=== PATIENT | male | born 2000 | race Caucasian/White ===

== ENCOUNTER 2021-09-25 12:49 | Inpatient (IN) | payer MEDICAID ==
[~2021-09-25] VITALS: Ht 165.1 cm; Wt 66.8 kg
[2021-09-25] MEDS ORDERED: DEXAMETHASONE 4MG/ML 1ML VIAL IV ONE (13:45)
[2021-09-25 14:20] LABS: MEAN CORPUSCULAR HEMOGLOBIN 31.9 pg (28.0-32.0); MEAN CORPUSCULAR VOLUME 94.8 fL (80.0-94.0); MEAN PLATELET VOLUME 8.1 fl (7.4-10.4); PLATELET 329 x1000/uL (130-400); RED BLOOD CELL COUNT 1.71 mill/uL (4.7-6.1); RED CELL DISTRIBUTION WIDTH 13.3 % (11.6-14.6)
[2021-09-25 14:24] LABS: HEMATOCRIT. 16.2 % (42.0-52.0); HEMOGLOBIN. 5.4 g/dL (14.0-18.0)
[2021-09-25 14:25] LABS: CHLORIDE 89 mEq/L (98-107)
[2021-09-25] MEDS ORDERED: PIPERACILLIN/TAZ 3.375G PREMIX 50 ML IV ONE (14:30)
[2021-09-25 15:20] LABS: PLATELET ESTIMATE NORMAL
[2021-09-25] MEDS ORDERED: SODIUM POLYSTYRENE SULFONATE 15 G/60 ML BOT PO ONE (15:30)
[2021-09-25] MEDS ORDERED: DEXTROSE 50% WATER 50ML SYRINGE IV ONE (15:30)
[2021-09-25] MEDS ORDERED: ALBUTEROL (0.083%) 2.5MG/3ML NEB HHN ONE (15:30)
[2021-09-25] MEDS ORDERED: INSULIN REGULAR (HUMULIN R) 300UNITS/3ML VIAL IV ONE (15:30)
[2021-09-25] MEDS ORDERED: CALCIUM CHLORIDE 1GM/10ML SYR IV ONE (15:30)
[2021-09-25] MEDS ORDERED: SODIUM BICARBONATE 8.4% 1 MEQ/ML 50ML SYR IV ONE (15:30)
[2021-09-25] MEDS ORDERED: NALOXONE HCL 0.4MG/ML VIAL IV PRN (16:00)
[2021-09-25] MEDS ORDERED: DOCUSATE SODIUM 100MG CAPSULE PO PRN (16:00)
[2021-09-25] MEDS ORDERED: HYDROCODONE/ACETAMINOPHEN 5/325MG TABLET PO PRN (16:00)
[2021-09-25] MEDS ORDERED: MAGNESIUM/ALUMINUM HYDROXIDE/SIMETHICONE 30ML UDC PO PRN (16:00)
[2021-09-25] MEDS ORDERED: IPRATROPIUM/ALBUTEROL 0.5-3(2.5)MG/3ML NEB HHN PRN (16:00)
[2021-09-25] MEDS ORDERED: ENOXAPARIN 40MG/0.4ML SYR SUBCUT SCH (16:00)
[2021-09-25 18:26] LABS: INR 1.3; PROTHROMBIN TIME 13.9 sec (9.6-11.0)
[2021-09-25 19:01] LABS: CLARITY URINE CLEAR (CLEAR); COLOR URINE YELLOW (YELLOW); KETONES URINE NEGATIVE (NEGATIVE); LEUKOCYTE ESTERASE URINE 1+ (NEGATIVE); NITRITE URINE NEGATIVE (NEGATIVE); OCCULT BLOOD URINE 1+ (NEGATIVE); PROTEIN URINE 3+ (NEGATIVE); SPECIFIC GRAVITY URINE 1.015 (1.005-1.030); UROBILINOGEN URINE 0.2 E.U./dL (0.2-1.0)
[2021-09-25] MEDS: SODIUM CHLORIDE 0.9% INJ 3ML FLUSH IVF SCH (22:17)
[2021-09-25] MEDS: DEXT 5%/0.9% NACL 1,000 ML IV SCH (22:23)
[2021-09-25 22:46] LABS: BASOPHILS % 0.4 % (0.0-2.0); EOSINOPHILS % 0.1 % (0.0-5.0); HEMATOCRIT. 23.4 % (42.0-52.0); HEMOGLOBIN. 7.8 g/dL (14.0-18.0); LYMPHOCYTES % 10.5 % (20.0-50.0); MEAN CORPUSCULAR HEMOGLOBIN 31.1 pg (28.0-32.0); MEAN CORPUSCULAR VOLUME 93.9 fL (80.0-94.0); MEAN PLATELET VOLUME 8.1 fl (7.4-10.4); PLATELET 251 x1000/uL (130-400); RED CELL DISTRIBUTION WIDTH 14.3 % (11.6-14.6)
[2021-09-25] MEDS ORDERED: PIPERACILLIN/TAZ 3.375G PREMIX 50 ML IV SCH (23:00)
[2021-09-26] VITALS (21 sets, daily range): BP systolic 124–186; BP diastolic 35–102
[2021-09-26] MEDS: MORPHINE SULFATE 2 MG/ML CPJ (NOT FOR IM USE) IV PRN ×2 (01:28→17:54)
[2021-09-26] MEDS: SODIUM CHLORIDE 0.9% INJ 3ML FLUSH IVF SCH ×3 (05:05→22:19)
[2021-09-26 05:47] LABS: CHLORIDE 92 mEq/L (98-107)
[2021-09-26 05:53] LABS: BASOPHILS % 0.2 % (0.0-2.0); HEMATOCRIT. 22.8 % (42.0-52.0); HEMOGLOBIN. 7.7 g/dL (14.0-18.0); LYMPHOCYTES % 8.8 % (20.0-50.0); MEAN CORPUSCULAR HEMOGLOBIN 30.8 pg (28.0-32.0); MEAN CORPUSCULAR VOLUME 91.9 fL (80.0-94.0); MEAN PLATELET VOLUME 8.4 fl (7.4-10.4); MONOCYTES % 2.7 % (2.0-8.0); NEUTROPHILS % 88.3 % (40.0-76.0); PLATELET 245 x1000/uL (130-400); RED BLOOD CELL COUNT 2.48 mill/uL (4.7-6.1); RED CELL DISTRIBUTION WIDTH 14.4 % (11.6-14.6)
[2021-09-26] MEDS: GUAIFENESIN 200MG/10ML SUGAR FREE UDC PO PRN (10:57)
[2021-09-26 13:18] LABS: HEPATITIS B SURFACE ANTIGEN NEGATIVE
[2021-09-26 16:12] LABS: BG BASE EXCESS -3.1 mmol/L (-2.0-2.0); BG CARBOXYHEMOGLOBIN 0.3 % (0.5-1.5); BG DEOXYHEMOGLOBIN 17.3 % (0.0-5.0); BG FRACTION INSPIRED OXYGEN 99.8; BG HCO3 ACT 22.7 mmol/L (22.0-26.0); BG METHEMOGLOBIN 0.6 % (0.0-1.5); BG OXYGEN SATURATION 82.5 % (92.0-98.5); BG OXYHEMOGLOBIN 81.8 % (94.0-97.0); BG PCO2 43.9 mmHg (35.0-45.0); BG PH 7.331 (7.350-7.450); BG PO2 56.5 mmHg (75.0-100.0); BG SAMPLE SITE RIGHT RADIAL; BG TOTAL HEMOGLOBIN 8.1 g/dL (12.0-18.0); BG VENT MODE MASK - NRB
[2021-09-26] MEDS: PANTOPRAZOLE SODIUM 40 MG/VIAL IV SCH (17:52)
[2021-09-26] MEDS: SUCRALFATE 1 G/10 ML UDC PO SCH ×2 (17:52→22:29)
[2021-09-26] MEDS: PIPERACILLIN/TAZOBACTAM 3.375 G in DEXTROSE 5% WATER 50 ML IV SCH ×2 (17:53→22:20)
[2021-09-26] MEDS: DEXT 5%/0.9% NACL 1,000 ML IV SCH (18:06)
[2021-09-26] MEDS: DIPHENHYDRAMINE 50MG/ML VIAL IV PRN (22:20)
[2021-09-26] MEDS: CLONIDINE 0.1MG TABLET PO PRN (22:21)
[2021-09-26] MEDS: LORAZEPAM 2MG/ML CPJ IV PRN (22:28)
[2021-09-27] VITALS (61 sets, daily range): BP systolic 95–151; BP diastolic 31–108
[2021-09-27] MEDS: CLONIDINE 0.1MG TABLET PO PRN ×2 (02:25→08:34)
[2021-09-27] MEDS: DIPHENHYDRAMINE 50MG/ML VIAL IV PRN ×4 (02:25→21:46)
[2021-09-27 05:52] LABS: HEMATOCRIT. 21.5 % (42.0-52.0); HEMOGLOBIN. 7.5 g/dL (14.0-18.0); MEAN CORPUSCULAR VOLUME 92.2 fL (80.0-94.0); MEAN PLATELET VOLUME 8.7 fl (7.4-10.4); PLATELET 226 x1000/uL (130-400); RED BLOOD CELL COUNT 2.33 mill/uL (4.7-6.1); RED CELL DISTRIBUTION WIDTH 14.4 % (11.6-14.6)
[2021-09-27 05:56] LABS: CHLORIDE 99 mEq/L (98-107)
[2021-09-27 06:08] LABS: TOTAL IRON BINDING CAPACITY 294 ug/dL (250-450)
[2021-09-27] MEDS: PIPERACILLIN/TAZOBACTAM 3.375 G in DEXTROSE 5% WATER 50 ML IV SCH ×2 (06:19→21:47)
[2021-09-27 06:30] LABS: FOLIC ACID (FOLATE) SERUM 5.8 ng/mL (>5.38)
[2021-09-27] MEDS: SUCRALFATE 1 G/10 ML UDC PO SCH ×4 (06:42→21:46)
[2021-09-27] MEDS: SODIUM CHLORIDE 0.9% INJ 3ML FLUSH IVF SCH ×3 (06:42→21:49)
[2021-09-27] MEDS: DEXT 5%/0.9% NACL 1,000 ML IV SCH ×2 (07:30→17:36)
[2021-09-27 08:19] LABS: BG BASE EXCESS 5.2 mmol/L (-2.0-2.0); BG CARBOXYHEMOGLOBIN 0.3 % (0.5-1.5); BG DEOXYHEMOGLOBIN 2.4 % (0.0-5.0); BG HCO3 ACT 29.8 mmol/L (22.0-26.0); BG METHEMOGLOBIN 0.3 % (0.0-1.5); BG OXYGEN SATURATION 97.6 % (92.0-98.5); BG PCO2 44.4 mmHg (35.0-45.0); BG PH 7.445 (7.350-7.450); BG PO2 108.3 mmHg (75.0-100.0); BG SAMPLE SITE RIGHT RADIAL; BG TOTAL HEMOGLOBIN 8.1 g/dL (12.0-18.0); BG VENT MODE MASK - NRB
[2021-09-27] MEDS: PANTOPRAZOLE SODIUM 40 MG/VIAL IV SCH ×2 (08:33→17:36)
[2021-09-27 10:18] LABS: CREATINE KINASE 1443 IU/L (39-308)
[2021-09-27 12:21] LABS: PLATELET ESTIMATE NORMAL
[2021-09-28] VITALS (71 sets, daily range): BP systolic 65–179; BP diastolic 21–103
[2021-09-28 06:24] LABS: BASOPHILS % 0.2 % (0.0-2.0); EOSINOPHILS % 0.5 % (0.0-5.0); LYMPHOCYTES % 7.9 % (20.0-50.0); MEAN CORPUSCULAR HEMOGLOBIN 33.3 pg (28.0-32.0); MEAN CORPUSCULAR VOLUME 94.1 fL (80.0-94.0); MEAN PLATELET VOLUME 8.5 fl (7.4-10.4); MONOCYTES % 4.8 % (2.0-8.0); NEUTROPHILS % 86.6 % (40.0-76.0); PLATELET 187 x1000/uL (130-400); RED CELL DISTRIBUTION WIDTH 14.4 % (11.6-14.6)
[2021-09-28] MEDS: SUCRALFATE 1 G/10 ML UDC PO SCH ×4 (06:30→21:05)
[2021-09-28] MEDS: PIPERACILLIN/TAZOBACTAM 3.375 G in DEXTROSE 5% WATER 50 ML IV SCH ×2 (06:38→21:01)
[2021-09-28] MEDS: SODIUM CHLORIDE 0.9% INJ 3ML FLUSH IVF SCH ×3 (06:40→22:20)
[2021-09-28 06:59] LABS: HEMATOCRIT. 17.9 % (42.0-52.0); HEMOGLOBIN. 6.3 g/dL (14.0-18.0)
[2021-09-28 07:49] LABS: CHLORIDE 100 mEq/L (98-107)
[2021-09-28] MEDS: PANTOPRAZOLE SODIUM 40 MG/VIAL IV SCH ×2 (08:09→16:56)
[2021-09-28] MEDS ORDERED: ALBUTEROL 6.7GM HFA INHALER ORI PRN (11:45)
[2021-09-28] MEDS: DEXT 5%/0.9% NACL 1,000 ML IV SCH (14:55)
[2021-09-28 15:06] LABS: ANTI-NUCLEAR ANTIBODIES DIRECT Negative (Negative)
[2021-09-28] MEDS: IRON SUCROSE COMPLEX 100 MG/5 ML ML IV SCH (16:56)
[2021-09-28 20:02] LABS: HEMATOCRIT 25.8 % (42.0-52.0)
[2021-09-28] MEDS: DIPHENHYDRAMINE 50MG/ML VIAL IV PRN (21:05)
[2021-09-28] MEDS: GUAIFENESIN 200MG/10ML SUGAR FREE UDC PO PRN (22:19)
[2021-09-29] VITALS (41 sets, daily range): BP systolic 91–184; BP diastolic 40–141
[2021-09-29] MEDS: LORAZEPAM 2MG/ML CPJ IV PRN (00:46)
[2021-09-29 00:50] LABS: HEMATOCRIT 25.7 % (42.0-52.0); HEMOGLOBIN 8.9 g/dL (14.0-18.0)
[2021-09-29] MEDS: CLONIDINE 0.1MG TABLET PO PRN (01:51)
[2021-09-29] MEDS: DEXT 5%/0.9% NACL 1,000 ML IV SCH (06:00)
[2021-09-29] MEDS: SODIUM CHLORIDE 0.9% INJ 3ML FLUSH IVF SCH ×2 (06:00→14:53)
[2021-09-29 06:08] LABS: CHLORIDE 100 mEq/L (98-107)
[2021-09-29 06:20] LABS: HEMATOCRIT. 25.3 % (42.0-52.0); HEMOGLOBIN. 8.8 g/dL (14.0-18.0); MEAN CORPUSCULAR HEMOGLOBIN 31.8 pg (28.0-32.0); MEAN CORPUSCULAR VOLUME 91.9 fL (80.0-94.0); MEAN PLATELET VOLUME 8.2 fl (7.4-10.4); PLATELET 188 x1000/uL (130-400); RED BLOOD CELL COUNT 2.75 mill/uL (4.7-6.1); RED CELL DISTRIBUTION WIDTH 14.8 % (11.6-14.6)
[2021-09-29] MEDS: SUCRALFATE 1 G/10 ML UDC PO SCH ×4 (07:09→21:51)
[2021-09-29] MEDS: PIPERACILLIN/TAZOBACTAM 3.375 G in DEXTROSE 5% WATER 50 ML IV SCH ×2 (08:33→21:52)
[2021-09-29] MEDS: PANTOPRAZOLE SODIUM 40 MG/VIAL IV SCH ×2 (08:33→16:11)
[2021-09-29] MEDS: GUAIFENESIN 200MG/10ML SUGAR FREE UDC PO PRN ×2 (10:44→16:12)
[2021-09-29 13:49] LABS: PLATELET ESTIMATE NORMAL
[2021-09-29 14:27] LABS: HEMATOCRIT 29.9 % (42.0-52.0)
[2021-09-29] MEDS: IRON SUCROSE COMPLEX 100 MG/5 ML ML IV SCH (14:54)
[2021-09-29] MEDS: HYDRALAZINE HCL 50MG TABLET PO SCH ×2 (14:56→22:57)
[2021-09-29 21:25] LABS: HEMATOCRIT 29.8 % (42.0-52.0); HEMOGLOBIN 10.3 g/dL (14.0-18.0)
[2021-09-30] VITALS (29 sets, daily range): BP systolic 115–139; BP diastolic 58–89
[2021-09-30] MEDS: SUCRALFATE 1 G/10 ML UDC PO SCH ×4 (06:18→23:52)
[2021-09-30] MEDS: HYDRALAZINE HCL 50MG TABLET PO SCH ×3 (06:19→23:53)
[2021-09-30] MEDS: DEXT 5%/0.9% NACL 1,000 ML IV SCH ×2 (06:20→23:52)
[2021-09-30 07:29] LABS: HEMATOCRIT. 26.6 % (42.0-52.0); HEMOGLOBIN. 9.3 g/dL (14.0-18.0); MEAN CORPUSCULAR HEMOGLOBIN 32.1 pg (28.0-32.0); MEAN CORPUSCULAR VOLUME 91.9 fL (80.0-94.0); MEAN PLATELET VOLUME 8.2 fl (7.4-10.4); PLATELET 214 x1000/uL (130-400); RED BLOOD CELL COUNT 2.89 mill/uL (4.7-6.1); RED CELL DISTRIBUTION WIDTH 14.6 % (11.6-14.6)
[2021-09-30] MEDS: PANTOPRAZOLE SODIUM 40 MG/VIAL IV SCH ×2 (09:01→16:57)
[2021-09-30] MEDS: PIPERACILLIN/TAZOBACTAM 3.375 G in DEXTROSE 5% WATER 50 ML IV SCH ×2 (09:01→21:00)
[2021-09-30] MEDS ORDERED: PHENYLEPHRINE HCL 1% 15 ML NASAL SPRAY BOTHNSTRLS PRN (11:00)
[2021-09-30] MEDS: SODIUM CHLORIDE 0.9% INJ 3ML FLUSH IVF SCH ×2 (14:36→23:52)
[2021-09-30] MEDS: IRON SUCROSE COMPLEX 100 MG/5 ML ML IV SCH (14:36)
[2021-09-30 15:50] LABS: PLATELET ESTIMATE NORMAL
[2021-09-30] MEDS: OXYMETAZOLINE HCL NASAL SPRAY 15ML BOTHNSTRLS SCH ×2 (16:57→23:52)
[2021-10-01 04:00] VITALS: BP 113/66
[2021-10-01] MEDS: HYDRALAZINE HCL 50MG TABLET PO SCH ×3 (05:59→22:54)
[2021-10-01] MEDS: SODIUM CHLORIDE 0.9% INJ 3ML FLUSH IVF SCH ×3 (05:59→22:54)
[2021-10-01] MEDS: SUCRALFATE 1 G/10 ML UDC PO SCH ×4 (06:00→22:53)
[2021-10-01 08:00] VITALS: BP 116/82
[2021-10-01 09:10] LABS: BASOPHILS % 0.8 % (0.0-2.0); EOSINOPHILS % 4.1 % (0.0-5.0); HEMATOCRIT. 26.4 % (42.0-52.0); HEMOGLOBIN. 9.1 g/dL (14.0-18.0); LYMPHOCYTES % 7.6 % (20.0-50.0); MEAN CORPUSCULAR HEMOGLOBIN 31.9 pg (28.0-32.0); MEAN CORPUSCULAR VOLUME 92.2 fL (80.0-94.0); MEAN PLATELET VOLUME 7.8 fl (7.4-10.4); MONOCYTES % 4.9 % (2.0-8.0); NEUTROPHILS % 82.6 % (40.0-76.0); PLATELET 218 x1000/uL (130-400); RED BLOOD CELL COUNT 2.87 mill/uL (4.7-6.1); RED CELL DISTRIBUTION WIDTH 14.6 % (11.6-14.6)
[2021-10-01] MEDS: PANTOPRAZOLE SODIUM 40 MG/VIAL IV SCH ×2 (09:11→17:02)
[2021-10-01] MEDS: OXYMETAZOLINE HCL NASAL SPRAY 15ML BOTHNSTRLS SCH ×2 (09:12→22:55)
[2021-10-01 12:00] VITALS: BP 129/90
[2021-10-01 16:00] VITALS: BP 114/81
[2021-10-01] MEDS: DEXT 5%/0.9% NACL 1,000 ML IV SCH (17:04)
[2021-10-01 19:11] LABS: HEMATOCRIT 24.8 % (42.0-52.0); HEMOGLOBIN 8.3 g/dL (14.0-18.0)
[2021-10-01 20:00] VITALS: BP 125/87
[2021-10-02 04:00] VITALS: BP 121/74
[2021-10-02] MEDS: SODIUM CHLORIDE 0.9% INJ 3ML FLUSH IVF SCH ×3 (06:18→22:15)
[2021-10-02] MEDS: HYDRALAZINE HCL 50MG TABLET PO SCH ×3 (06:19→22:14)
[2021-10-02] MEDS: SUCRALFATE 1 G/10 ML UDC PO SCH ×4 (06:19→22:14)
[2021-10-02 08:00] VITALS: BP 122/78
[2021-10-02] MEDS: PANTOPRAZOLE SODIUM 40 MG/VIAL IV SCH ×2 (09:03→17:01)
[2021-10-02] MEDS: OXYMETAZOLINE HCL NASAL SPRAY 15ML BOTHNSTRLS SCH ×2 (09:10→22:15)
[2021-10-02 11:08] LABS: HEMATOCRIT. 24.7 % (42.0-52.0); HEMOGLOBIN. 8.3 g/dL (14.0-18.0); MEAN CORPUSCULAR HEMOGLOBIN 31.3 pg (28.0-32.0); MEAN CORPUSCULAR VOLUME 93.1 fL (80.0-94.0); MEAN PLATELET VOLUME 7.5 fl (7.4-10.4); PLATELET 211 x1000/uL (130-400); RED BLOOD CELL COUNT 2.65 mill/uL (4.7-6.1); RED CELL DISTRIBUTION WIDTH 14.7 % (11.6-14.6)
[2021-10-02 12:00] VITALS: BP 139/79
[2021-10-02] MEDS: ONDANSETRON HCL 4MG/2ML INJ IV PRN (12:29)
[2021-10-02 12:46] LABS: PLATELET ESTIMATE NORMAL
[2021-10-02] MEDS: DEXT 5%/0.9% NACL 1,000 ML IV SCH (13:50)
[2021-10-02 16:00] VITALS: BP 127/70
[2021-10-02 20:00] VITALS: BP 126/87
[2021-10-03 04:00] VITALS: BP 120/74
[2021-10-03] MEDS: SUCRALFATE 1 G/10 ML UDC PO SCH ×4 (06:01→20:54)
[2021-10-03] MEDS: HYDRALAZINE HCL 50MG TABLET PO SCH ×3 (06:01→20:54)
[2021-10-03] MEDS: SODIUM CHLORIDE 0.9% INJ 3ML FLUSH IVF SCH ×3 (06:02→20:54)
[2021-10-03 08:00] VITALS: BP 130/73
[2021-10-03] MEDS: PANTOPRAZOLE SODIUM 40 MG/VIAL IV SCH ×2 (09:15→16:38)
[2021-10-03] MEDS: ONDANSETRON HCL 4MG/2ML INJ IV PRN (09:15)
[2021-10-03] MEDS: OXYMETAZOLINE HCL NASAL SPRAY 15ML BOTHNSTRLS SCH ×2 (09:16→20:58)
[2021-10-03 12:00] VITALS: BP 124/79
[2021-10-03] MEDS: DEXT 5%/0.9% NACL 1,000 ML IV SCH (13:35)
[2021-10-03 16:00] VITALS: BP 112/68
[2021-10-03 20:00] VITALS: BP 112/71
[2021-10-03 22:03] LABS: HEMATOCRIT 20.2 % (42.0-52.0); HEMOGLOBIN 6.8 g/dL (14.0-18.0)
[2021-10-04] VITALS (9 sets, daily range): BP systolic 117–128; BP diastolic 66–79
[2021-10-04] MEDS: HYDRALAZINE HCL 50MG TABLET PO SCH ×3 (05:30→22:25)
[2021-10-04] MEDS: SODIUM CHLORIDE 0.9% INJ 3ML FLUSH IVF SCH ×3 (05:30→22:25)
[2021-10-04] MEDS: SUCRALFATE 1 G/10 ML UDC PO SCH ×4 (05:30→22:25)
[2021-10-04 06:50] LABS: BASOPHILS % 1.2 % (0.0-2.0); EOSINOPHILS % 2.3 % (0.0-5.0); HEMATOCRIT. 23.4 % (42.0-52.0); HEMOGLOBIN. 8.1 g/dL (14.0-18.0); LYMPHOCYTES % 10.2 % (20.0-50.0); MEAN CORPUSCULAR HEMOGLOBIN 32.5 pg (28.0-32.0); MEAN CORPUSCULAR VOLUME 93.4 fL (80.0-94.0); MEAN PLATELET VOLUME 7.6 fl (7.4-10.4); MONOCYTES % 6.8 % (2.0-8.0); NEUTROPHILS % 79.5 % (40.0-76.0); PLATELET 206 x1000/uL (130-400); RED BLOOD CELL COUNT 2.51 mill/uL (4.7-6.1); RED CELL DISTRIBUTION WIDTH 14.4 % (11.6-14.6)
[2021-10-04] MEDS: PANTOPRAZOLE SODIUM 40 MG/VIAL IV SCH ×2 (08:47→16:54)
[2021-10-04] MEDS: OXYMETAZOLINE HCL NASAL SPRAY 15ML BOTHNSTRLS SCH ×2 (08:47→22:26)
[2021-10-04] MEDS: ONDANSETRON HCL 4MG/2ML INJ IV PRN (08:52)
[2021-10-04] MEDS: ACETAMINOPHEN 325MG TABLET PO PRN (09:19)
[2021-10-04 20:06] LABS: HEMATOCRIT 23.9 % (42.0-52.0); HEMOGLOBIN 8.1 g/dL (14.0-18.0)
[2021-10-04 20:22] LABS: INR 1.2; PROTHROMBIN TIME 12.4 sec (9.6-11.0)
[2021-10-05 04:00] VITALS: BP 122/73
[2021-10-05] MEDS: SUCRALFATE 1 G/10 ML UDC PO SCH ×4 (06:04→22:10)
[2021-10-05] MEDS: SODIUM CHLORIDE 0.9% INJ 3ML FLUSH IVF SCH ×3 (06:05→22:11)
[2021-10-05] MEDS: HYDRALAZINE HCL 50MG TABLET PO SCH ×3 (06:05→22:10)
[2021-10-05 08:00] VITALS: BP 135/72
[2021-10-05] MEDS: PANTOPRAZOLE SODIUM 40 MG/VIAL IV SCH ×2 (09:00→17:14)
[2021-10-05] MEDS: OXYMETAZOLINE HCL NASAL SPRAY 15ML BOTHNSTRLS SCH ×2 (09:00→22:11)
[2021-10-05 12:00] VITALS: BP 110/81
[2021-10-05 16:00] VITALS: BP 126/81
[2021-10-05 18:39] LABS: BASOPHILS % 1.5 % (0.0-2.0); EOSINOPHILS % 2.3 % (0.0-5.0); HEMATOCRIT. 24.3 % (42.0-52.0); HEMOGLOBIN. 8.2 g/dL (14.0-18.0); LYMPHOCYTES % 10.4 % (20.0-50.0); MEAN CORPUSCULAR HEMOGLOBIN 31.4 pg (28.0-32.0); MEAN CORPUSCULAR VOLUME 92.7 fL (80.0-94.0); MEAN PLATELET VOLUME 7.9 fl (7.4-10.4); NEUTROPHILS % 76.8 % (40.0-76.0); PLATELET 242 x1000/uL (130-400); RED BLOOD CELL COUNT 2.62 mill/uL (4.7-6.1); RED CELL DISTRIBUTION WIDTH 14.5 % (11.6-14.6)
[2021-10-05 20:00] VITALS: BP 126/81
[2021-10-05] MEDS: ONDANSETRON HCL 4MG/2ML INJ IV PRN (22:10)
[2021-10-06] VITALS: BP 115/68
[2021-10-06 04:00] VITALS: BP 123/71
[2021-10-06 07:08] LABS: BASOPHILS % 1.9 % (0.0-2.0); EOSINOPHILS % 3.1 % (0.0-5.0); HEMATOCRIT. 21.6 % (42.0-52.0); HEMOGLOBIN. 7.6 g/dL (14.0-18.0); LYMPHOCYTES % 15.1 % (20.0-50.0); MEAN CORPUSCULAR HEMOGLOBIN 32.4 pg (28.0-32.0); MEAN CORPUSCULAR VOLUME 91.8 fL (80.0-94.0); MEAN PLATELET VOLUME 7.4 fl (7.4-10.4); MONOCYTES % 9.3 % (2.0-8.0); NEUTROPHILS % 70.6 % (40.0-76.0); PLATELET 214 x1000/uL (130-400); RED BLOOD CELL COUNT 2.35 mill/uL (4.7-6.1); RED CELL DISTRIBUTION WIDTH 14.7 % (11.6-14.6)
[2021-10-06] MEDS: SODIUM CHLORIDE 0.9% INJ 3ML FLUSH IVF SCH ×3 (07:10→22:11)
[2021-10-06] MEDS: SUCRALFATE 1 G/10 ML UDC PO SCH ×4 (07:10→20:27)
[2021-10-06] MEDS: HYDRALAZINE HCL 50MG TABLET PO SCH ×3 (07:10→22:09)
[2021-10-06 08:05] VITALS: BP 112/67
[2021-10-06] MEDS: OXYMETAZOLINE HCL NASAL SPRAY 15ML BOTHNSTRLS SCH (09:00)
[2021-10-06] MEDS: PANTOPRAZOLE SODIUM 40 MG/VIAL IV SCH ×2 (09:31→18:00)
[2021-10-06 12:00] VITALS: BP 116/80
[2021-10-06 13:39] LABS: INR 1.2; PROTHROMBIN TIME 12.4 sec (9.6-11.0)
[2021-10-06] MEDS: ONDANSETRON HCL 4MG/2ML INJ IV SCH ×2 (15:20→20:27)
[2021-10-06 16:00] VITALS: BP 124/80
[2021-10-06 17:08] LABS: BG BASE EXCESS -1.3 mmol/L (-2.0-2.0); BG CARBOXYHEMOGLOBIN 0.3 % (0.5-1.5); BG DEOXYHEMOGLOBIN 11.5 % (0.0-5.0); BG FRACTION INSPIRED OXYGEN 21; BG METHEMOGLOBIN 0.3 % (0.0-1.5); BG OXYGEN SATURATION 88.4 % (92.0-98.5); BG OXYHEMOGLOBIN 87.9 % (94.0-97.0); BG PCO2 37.1 mmHg (35.0-45.0); BG PH 7.411 (7.350-7.450); BG SAMPLE SITE RIGHT RADIAL; BG TOTAL HEMOGLOBIN 8.8 g/dL (12.0-18.0); BG VENT MODE ROOM AIR
[2021-10-07] VITALS: BP 122/76
[2021-10-07] MEDS: ONDANSETRON HCL 4MG/2ML INJ IV SCH ×4 (02:47→22:27)
[2021-10-07 04:00] VITALS: BP 128/84
[2021-10-07] MEDS: SODIUM CHLORIDE 0.9% INJ 3ML FLUSH IVF SCH ×3 (06:12→22:30)
[2021-10-07] MEDS: SUCRALFATE 1 G/10 ML UDC PO SCH ×4 (06:12→22:26)
[2021-10-07] MEDS: HYDRALAZINE HCL 50MG TABLET PO SCH ×3 (06:13→22:27)
[2021-10-07 08:00] VITALS: BP 126/80
[2021-10-07 08:14] LABS: BASOPHILS % 1.2 % (0.0-2.0); EOSINOPHILS % 2.5 % (0.0-5.0); HEMATOCRIT. 22.5 % (42.0-52.0); HEMOGLOBIN. 7.8 g/dL (14.0-18.0); LYMPHOCYTES % 11.7 % (20.0-50.0); MEAN CORPUSCULAR HEMOGLOBIN 32.3 pg (28.0-32.0); MEAN CORPUSCULAR VOLUME 93.3 fL (80.0-94.0); MEAN PLATELET VOLUME 7.9 fl (7.4-10.4); MONOCYTES % 7.9 % (2.0-8.0); NEUTROPHILS % 76.7 % (40.0-76.0); PLATELET 221 x1000/uL (130-400); RED BLOOD CELL COUNT 2.41 mill/uL (4.7-6.1); RED CELL DISTRIBUTION WIDTH 14.5 % (11.6-14.6)
[2021-10-07] MEDS: PANTOPRAZOLE SODIUM 40 MG/VIAL IV SCH ×2 (08:51→16:24)
[2021-10-07 12:00] VITALS: BP 120/79
[2021-10-07 15:43] VITALS: BP 143/97
[2021-10-07 20:45] VITALS: BP 125/87
[2021-10-07] MEDS: ACETAMINOPHEN 325MG TABLET PO PRN (22:27)
[2021-10-08] VITALS (22 sets, daily range): BP systolic 105–134; BP diastolic 59–88
[2021-10-08] MEDS: ONDANSETRON HCL 4MG/2ML INJ IV SCH ×4 (04:33→21:04)
[2021-10-08] MEDS: SODIUM CHLORIDE 0.9% INJ 3ML FLUSH IVF SCH ×3 (04:35→21:10)
[2021-10-08] MEDS ORDERED: CEFAZOLIN 1000MG PREMIX 50 ML IV NR (08:15)
[2021-10-08] MEDS ORDERED: CEFAZOLIN 1000MG PREMIX 50 ML IV ONE (08:30)
[2021-10-08] MEDS ORDERED: FENTANYL CITRATE/PF 50MCG/ML 2ML VIAL ONE (08:31)
[2021-10-08] MEDS ORDERED: LIDOCAINE HCL 1% 20ML VIAL (Pyxis) INJ ONE (08:31)
[2021-10-08] MEDS: PANTOPRAZOLE SODIUM 40 MG/VIAL IV SCH ×2 (09:00→18:02)
[2021-10-08] MEDS ORDERED: FENTANYL CITRATE/PF 50MCG/ML 2ML VIAL IV NR (09:45)
[2021-10-08] MEDS ORDERED: METOCLOPRAMIDE HCL 10MG/2ML VIAL IV PRN (11:30)
[2021-10-08] MEDS: SUCRALFATE 1 G/10 ML UDC PO SCH ×4 (11:45→21:04)
[2021-10-08] MEDS: HYDRALAZINE HCL 50MG TABLET PO SCH (22:00)
[2021-10-09] VITALS: BP 118/73
[2021-10-09] MEDS: ACETAMINOPHEN 325MG TABLET PO PRN (01:33)
[2021-10-09] MEDS: ONDANSETRON HCL 4MG/2ML INJ IV SCH ×4 (03:14→20:15)
[2021-10-09 04:00] VITALS: BP 113/70
[2021-10-09] MEDS: SUCRALFATE 1 G/10 ML UDC PO SCH ×4 (06:11→21:00)
[2021-10-09] MEDS: HYDRALAZINE HCL 50MG TABLET PO SCH ×3 (06:15→22:00)
[2021-10-09] MEDS: SODIUM CHLORIDE 0.9% INJ 3ML FLUSH IVF SCH ×3 (06:38→22:00)
[2021-10-09 07:10] LABS: BASOPHILS % 1.4 % (0.0-2.0); EOSINOPHILS % 2.1 % (0.0-5.0); HEMATOCRIT. 22.9 % (42.0-52.0); HEMOGLOBIN. 8.1 g/dL (14.0-18.0); LYMPHOCYTES % 14.7 % (20.0-50.0); MEAN CORPUSCULAR HEMOGLOBIN 32.7 pg (28.0-32.0); MEAN CORPUSCULAR VOLUME 92.6 fL (80.0-94.0); MONOCYTES % 6.4 % (2.0-8.0); NEUTROPHILS % 75.4 % (40.0-76.0); PLATELET 211 x1000/uL (130-400); RED BLOOD CELL COUNT 2.47 mill/uL (4.7-6.1); RED CELL DISTRIBUTION WIDTH 14.1 % (11.6-14.6)
[2021-10-09 08:00] VITALS: BP 112/71
[2021-10-09] MEDS: PANTOPRAZOLE SODIUM 40 MG/VIAL IV SCH ×2 (08:31→17:06)
[2021-10-09 12:00] VITALS: BP 117/69
[2021-10-09 15:19] LABS: HEPATITIS B SURFACE ANTIGEN NEGATIVE
[2021-10-09 15:46] VITALS: BP 120/82
[2021-10-10] MEDS: ACETAMINOPHEN 325MG TABLET PO PRN (00:43)
[2021-10-10 04:00] VITALS: BP 140/85
[2021-10-10] MEDS: ONDANSETRON HCL 4MG/2ML INJ IV SCH ×4 (05:07→20:33)
[2021-10-10] MEDS: SUCRALFATE 1 G/10 ML UDC PO SCH ×4 (05:08→20:32)
[2021-10-10] MEDS: HYDRALAZINE HCL 50MG TABLET PO SCH ×3 (05:08→21:55)
[2021-10-10] MEDS: SODIUM CHLORIDE 0.9% INJ 3ML FLUSH IVF SCH ×3 (06:03→21:56)
[2021-10-10 08:04] LABS: BASOPHILS % 2.3 % (0.0-2.0); EOSINOPHILS % 1.7 % (0.0-5.0); HEMATOCRIT. 23.7 % (42.0-52.0); HEMOGLOBIN. 7.9 g/dL (14.0-18.0); LYMPHOCYTES % 21.4 % (20.0-50.0); MEAN CORPUSCULAR HEMOGLOBIN 31.1 pg (28.0-32.0); MEAN CORPUSCULAR VOLUME 92.6 fL (80.0-94.0); MEAN PLATELET VOLUME 8.1 fl (7.4-10.4); NEUTROPHILS % 67.6 % (40.0-76.0); PLATELET 240 x1000/uL (130-400); RED BLOOD CELL COUNT 2.55 mill/uL (4.7-6.1); RED CELL DISTRIBUTION WIDTH 14.5 % (11.6-14.6)
[2021-10-10 08:30] VITALS: BP 115/78
[2021-10-10] MEDS: PANTOPRAZOLE SODIUM 40 MG/VIAL IV SCH ×2 (09:28→17:01)
[2021-10-10 12:00] VITALS: BP 120/80
[2021-10-10 16:00] VITALS: BP 119/72
[2021-10-10 20:00] VITALS: BP 116/83
[2021-10-11] VITALS: BP 121/75
[2021-10-11] MEDS: ONDANSETRON HCL 4MG/2ML INJ IV SCH ×4 (03:37→21:54)
[2021-10-11 04:00] VITALS: BP 128/62
[2021-10-11] MEDS: HYDRALAZINE HCL 50MG TABLET PO SCH ×3 (05:34→21:55)
[2021-10-11] MEDS: SODIUM CHLORIDE 0.9% INJ 3ML FLUSH IVF SCH ×3 (05:35→21:55)
[2021-10-11] MEDS: SUCRALFATE 1 G/10 ML UDC PO SCH ×4 (06:28→21:54)
[2021-10-11 07:22] LABS: BASOPHILS % 2.6 % (0.0-2.0); EOSINOPHILS % 1.8 % (0.0-5.0); HEMOGLOBIN. 7.8 g/dL (14.0-18.0); LYMPHOCYTES % 19.8 % (20.0-50.0); MEAN CORPUSCULAR HEMOGLOBIN 31.4 pg (28.0-32.0); MEAN CORPUSCULAR VOLUME 92.6 fL (80.0-94.0); MONOCYTES % 7.6 % (2.0-8.0); NEUTROPHILS % 68.2 % (40.0-76.0); PLATELET 237 x1000/uL (130-400); RED BLOOD CELL COUNT 2.49 mill/uL (4.7-6.1); RED CELL DISTRIBUTION WIDTH 14.4 % (11.6-14.6)
[2021-10-11 08:30] VITALS: BP 96/64
[2021-10-11] MEDS: PANTOPRAZOLE SODIUM 40 MG/VIAL IV SCH ×2 (09:19→16:53)
[2021-10-11 12:17] VITALS: BP 115/62
[2021-10-11 16:22] VITALS: BP 150/93
[2021-10-11 20:00] VITALS: BP 127/86
[2021-10-11] MEDS ORDERED: EPOETIN ALFA-EPBX 4,000 UNIT/ML VIAL SUBCUT NR (21:00)
[2021-10-12] VITALS: BP 96/62
[2021-10-12] MEDS: ONDANSETRON HCL 4MG/2ML INJ IV SCH ×4 (02:15→20:13)
[2021-10-12 04:00] VITALS: BP 104/54
[2021-10-12] MEDS: SUCRALFATE 1 G/10 ML UDC PO SCH ×4 (05:18→20:13)
[2021-10-12] MEDS: HYDRALAZINE HCL 50MG TABLET PO SCH ×3 (05:19→21:04)
[2021-10-12] MEDS: SODIUM CHLORIDE 0.9% INJ 3ML FLUSH IVF SCH ×3 (05:19→21:04)
[2021-10-12 07:39] LABS: EOSINOPHILS % 1.8 % (0.0-5.0); HEMOGLOBIN. 8.2 g/dL (14.0-18.0); LYMPHOCYTES % 22.7 % (20.0-50.0); MEAN CORPUSCULAR HEMOGLOBIN 31.8 pg (28.0-32.0); MEAN CORPUSCULAR VOLUME 93.1 fL (80.0-94.0); MEAN PLATELET VOLUME 8.1 fl (7.4-10.4); MONOCYTES % 7.7 % (2.0-8.0); NEUTROPHILS % 65.8 % (40.0-76.0); PLATELET 236 x1000/uL (130-400); RED BLOOD CELL COUNT 2.57 mill/uL (4.7-6.1); RED CELL DISTRIBUTION WIDTH 14.4 % (11.6-14.6)
[2021-10-12 08:00] VITALS: BP 111/68
[2021-10-12] MEDS: PANTOPRAZOLE SODIUM 40 MG/VIAL IV SCH ×2 (08:53→16:34)
[2021-10-12 12:00] VITALS: BP 123/75
[2021-10-12 16:00] VITALS: BP 115/68
[2021-10-12 20:00] VITALS: BP 110/72
[2021-10-13] VITALS: BP 123/67
[2021-10-13] MEDS: ONDANSETRON HCL 4MG/2ML INJ IV SCH ×4 (02:33→21:09)
[2021-10-13 04:00] VITALS: BP 119/65
[2021-10-13] MEDS: SUCRALFATE 1 G/10 ML UDC PO SCH ×4 (05:59→21:09)
[2021-10-13] MEDS: SODIUM CHLORIDE 0.9% INJ 3ML FLUSH IVF SCH ×3 (05:59→21:40)
[2021-10-13] MEDS: HYDRALAZINE HCL 50MG TABLET PO SCH ×3 (06:00→21:09)
[2021-10-13 07:50] LABS: BASOPHILS % 2.3 % (0.0-2.0); HEMATOCRIT. 22.2 % (42.0-52.0); HEMOGLOBIN. 7.6 g/dL (14.0-18.0); MEAN CORPUSCULAR HEMOGLOBIN 31.9 pg (28.0-32.0); MEAN PLATELET VOLUME 8.4 fl (7.4-10.4); MONOCYTES % 7.4 % (2.0-8.0); NEUTROPHILS % 65.3 % (40.0-76.0); PLATELET 212 x1000/uL (130-400); RED BLOOD CELL COUNT 2.38 mill/uL (4.7-6.1); RED CELL DISTRIBUTION WIDTH 14.3 % (11.6-14.6)
[2021-10-13 08:00] VITALS: BP 120/83
[2021-10-13] MEDS: PANTOPRAZOLE SODIUM 40 MG/VIAL IV SCH ×2 (09:13→17:00)
[2021-10-13] MEDS: ACETAMINOPHEN 325MG TABLET PO PRN (09:27)
[2021-10-13 12:30] VITALS: BP 110/71
[2021-10-13 16:00] VITALS: BP 140/85
[2021-10-13 20:00] VITALS: BP 124/84
[2021-10-14] VITALS: BP 107/61
[2021-10-14] MEDS: ACETAMINOPHEN 325MG TABLET PO PRN ×3 (01:17→22:14)
[2021-10-14] MEDS: ONDANSETRON HCL 4MG/2ML INJ IV SCH ×4 (01:17→20:15)
[2021-10-14 04:00] VITALS: BP 106/68
[2021-10-14] MEDS: HYDRALAZINE HCL 50MG TABLET PO SCH ×3 (05:14→22:02)
[2021-10-14] MEDS: SODIUM CHLORIDE 0.9% INJ 3ML FLUSH IVF SCH ×2 (06:00→22:00)
[2021-10-14 08:00] VITALS: BP 119/74
[2021-10-14] MEDS: PANTOPRAZOLE SODIUM 40 MG/VIAL IV SCH ×2 (09:22→17:33)
[2021-10-14] MEDS: SUCRALFATE 1 G/10 ML UDC PO SCH ×4 (09:23→21:00)
[2021-10-14 12:00] VITALS: BP 124/72
[2021-10-14 16:00] VITALS: BP 118/73
[2021-10-14 20:00] VITALS: BP 108/67
[2021-10-15] MEDS: ONDANSETRON HCL 4MG/2ML INJ IV SCH ×2 (02:15→11:01)
[2021-10-15] MEDS: HYDRALAZINE HCL 50MG TABLET PO SCH (06:00)
[2021-10-15 06:27] LABS: BASOPHILS % 0.8 % (0.0-2.0); EOSINOPHILS % 1.5 % (0.0-5.0); HEMATOCRIT. 22.7 % (42.0-52.0); LYMPHOCYTES % 18.3 % (20.0-50.0); MEAN CORPUSCULAR HEMOGLOBIN 32.5 pg (28.0-32.0); MEAN CORPUSCULAR VOLUME 92.5 fL (80.0-94.0); MEAN PLATELET VOLUME 8.7 fl (7.4-10.4); MONOCYTES % 7.2 % (2.0-8.0); NEUTROPHILS % 72.2 % (40.0-76.0); PLATELET 207 x1000/uL (130-400); RED BLOOD CELL COUNT 2.46 mill/uL (4.7-6.1); RED CELL DISTRIBUTION WIDTH 14.3 % (11.6-14.6)
[2021-10-15] MEDS: SODIUM CHLORIDE 0.9% INJ 3ML FLUSH IVF SCH (06:38)
[2021-10-15] MEDS: SUCRALFATE 1 G/10 ML UDC PO SCH ×2 (06:45→10:58)
[2021-10-15] MEDS: PANTOPRAZOLE SODIUM 40 MG/VIAL IV SCH (11:01)
[2021-10-15 12:25] VITALS: BP 132/74
== END 2021-10-15 13:36 | disposition home or self-care (01) | DRG 720 ==
LOC: ER 12:49 → MICUSO 15:29 → EDBEDREQ 15:37 → EDBEDREQSVC 15:37 → ENRESERV 09-26 07:22 → 7EST 09-30 12:47 → 5WST 10-06 00:42
PROVIDERS: ADMIT Internal Medicine; ATTEND Internal Medicine
PROC: 30233N1 Transfusion of Nonautologous Red Blood Cells into Peripheral Vein, Percutaneous Approach (ICD-10-PCS; 2021-09-25)
PROC: 02HV33Z Insertion of Infusion Device into Superior Vena Cava, Percutaneous Approach (ICD-10-PCS; principal; 2021-09-26)
PROC: B548ZZA Ultrasonography of Superior Vena Cava, Guidance (ICD-10-PCS; 2021-09-26)
PROC: 5A1D70Z Performance of Urinary Filtration, Intermittent, Less than 6 Hours Per Day (ICD-10-PCS; 2021-09-26)
PROC: 5A1D70Z Performance of Urinary Filtration, Intermittent, Less than 6 Hours Per Day (ICD-10-PCS; 2021-09-29)
PROC: 5A1D70Z Performance of Urinary Filtration, Intermittent, Less than 6 Hours Per Day (ICD-10-PCS; 2021-09-30)
PROC: 5A1D70Z Performance of Urinary Filtration, Intermittent, Less than 6 Hours Per Day (ICD-10-PCS; 2021-10-01)
PROC: 5A1D70Z Performance of Urinary Filtration, Intermittent, Less than 6 Hours Per Day (ICD-10-PCS; 2021-10-04)
PROC: 5A1D70Z Performance of Urinary Filtration, Intermittent, Less than 6 Hours Per Day (ICD-10-PCS; 2021-10-07)
PROC: 02PY33Z Removal of Infusion Device from Great Vessel, Percutaneous Approach (ICD-10-PCS; 2021-10-08)
PROC: 02HV33Z Insertion of Infusion Device into Superior Vena Cava, Percutaneous Approach (ICD-10-PCS; 2021-10-08)
PROC: 0JH63XZ Insertion of Tunneled Vascular Access Device into Chest Subcutaneous Tissue and Fascia, Percutaneous Approach (ICD-10-PCS; 2021-10-08)
PROC: B518ZZA Fluoroscopy of Superior Vena Cava, Guidance (ICD-10-PCS; 2021-10-08)
PROC: 5A1D70Z Performance of Urinary Filtration, Intermittent, Less than 6 Hours Per Day (ICD-10-PCS; 2021-10-09)
PROC: 5A1D70Z Performance of Urinary Filtration, Intermittent, Less than 6 Hours Per Day (ICD-10-PCS; 2021-10-10)
PROC: 5A1D70Z Performance of Urinary Filtration, Intermittent, Less than 6 Hours Per Day (ICD-10-PCS; 2021-10-12)
DX: A41.89 Other specified sepsis (principal); J96.01 Acute respiratory failure with hypoxia; N17.0 Acute kidney failure with tubular necrosis; J12.82 Pneumonia due to coronavirus disease 2019; E43 Unspecified severe protein-calorie malnutrition; U07.1 COVID-19; E87.2 Acidosis; K92.0 Hematemesis; E87.1 Hypo-osmolality and hyponatremia; D63.8 Anemia in other chronic diseases classified elsewhere; D53.9 Nutritional anemia, unspecified; E87.5 Hyperkalemia; F17.210 Nicotine dependence, cigarettes, uncomplicated; N39.0 Urinary tract infection, site not specified; M62.82 Rhabdomyolysis; R65.20 Severe sepsis without septic shock; N18.6 End stage renal disease; R04.0 Epistaxis; K92.1 Melena; R74.01 Elevation of levels of liver transaminase levels; I12.0 Hypertensive chronic kidney disease with stage 5 chronic kidney disease or end stage renal disease; R79.89 Other specified abnormal findings of blood chemistry
CPT/HCPCS: 36415; 36556; 36558; 36589; 36600; 71045; 74176; 76700; 76770; 76937; 77001; 80048; 80053; 80076; 81003; 82270; 82375; 82550; 82570; 82607; 82728; 82746; 82805; 83540; 83550; 83605; 83735; 83880; 84145; 84156; 84484; 85014; 85018; 85025; 85044; 86038; 86140; 86160; 86705; 86706; 86709; 86803; 86850; 86900; 86920; 87340; 87426; 87635; 93005; 94618; 99152; 99153; 99291; A4565; C1750; C1752; C1769; C1893; C9113; C9803; J0690; J0885; J1100; J1200; J1642; J1815; J2060; J2270; J2405; J2543; J3010; J3490; J7040; J7042; J7060; P9016; U0003; U0005; G0500

== ENCOUNTER 2021-11-20 03:32 | Inpatient (IN) | payer MEDICAID ==
[~2021-11-20] VITALS: Ht 162.6 cm; Wt 52.6 kg
[2021-11-20] MEDS ORDERED: ACETAMINOPHEN 650MG SUPP PR STA (03:55)
[2021-11-20] MEDS ORDERED: ALBUTEROL (0.083%) 2.5MG/3ML NEB HHN ONE (04:00)
[2021-11-20 04:22] LABS: BASOPHILS % 0.9 % (0.0-2.0); EOSINOPHILS % 2.7 % (0.0-5.0); HEMATOCRIT. 27.2 % (42.0-52.0); HEMOGLOBIN. 9.1 g/dL (14.0-18.0); LYMPHOCYTES % 19.9 % (20.0-50.0); MEAN CORPUSCULAR HEMOGLOBIN 31.8 pg (28.0-32.0); MEAN CORPUSCULAR VOLUME 95.6 fL (80.0-94.0); MEAN PLATELET VOLUME 7.5 fl (7.4-10.4); MONOCYTES % 5.4 % (2.0-8.0); NEUTROPHILS % 71.1 % (40.0-76.0); PLATELET 143 x1000/uL (130-400); RED BLOOD CELL COUNT 2.84 mill/uL (4.7-6.1); RED CELL DISTRIBUTION WIDTH 17.5 % (11.6-14.6)
[2021-11-20 04:34] LABS: CHLORIDE 109 mEq/L (98-107)
[2021-11-20] MEDS ORDERED: PIPERACILLIN/TAZ 3.375G PREMIX 50 ML IV NR (05:30)
[2021-11-20] MEDS ORDERED: MORPHINE SULFATE 2 MG/ML CPJ (NOT FOR IM USE) IV SCH (08:15)
[2021-11-20] MEDS ORDERED: HYDRALAZINE 20MG/ML VIAL IV PRN (10:30)
[2021-11-20] MEDS ORDERED: PROMETHAZINE/DEXTROMETHORPHAN 6.25-15MG/5ML BOTTLE 120ML PO PRN (10:30)
[2021-11-20] MEDS: THROAT LOZENGES-BENZOCAINE/MENTH/CETYLPYRD CL LOZENGES MM PRN (11:26)
[2021-11-20] MEDS: GUAIFENESIN-DM 200MG-20MG/10ML UDC PO PRN (11:27)
[2021-11-20 13:25] VITALS: BP 151/99
[2021-11-20 16:00] VITALS: BP 151/78
[2021-11-20 17:54] LABS: HEPATITIS B SURFACE ANTIGEN NEGATIVE
[2021-11-20 20:00] VITALS: BP 131/89
[2021-11-20] MEDS ORDERED: NALOXONE HCL 0.4MG/ML VIAL IV PRN (21:30)
[2021-11-20] MEDS ORDERED: SUCR1TAB PO (22:22)
[2021-11-20] MEDS ORDERED: PANT40TA51 PO (22:22)
[2021-11-21] VITALS: BP 144/90
[2021-11-21] MEDS: HYDROCODONE/ACETAMINOPHEN 10/325MG TABLET PO PRN ×4 (00:50→21:57)
[2021-11-21 04:00] VITALS: BP 140/98
[2021-11-21] MEDS: PANTOPRAZOLE 40MG DR TABLET PO SCH (06:12)
[2021-11-21] MEDS: GUAIFENESIN-DM 200MG-20MG/10ML UDC PO PRN ×3 (07:25→20:25)
[2021-11-21] MEDS: ONDANSETRON HCL 4MG/2ML INJ IV PRN ×2 (07:53→23:10)
[2021-11-21 08:00] VITALS: BP 154/106
[2021-11-21] MEDS ORDERED: *PATIENT'S OWN MEDICATION STORAGE XX SCH (08:30)
[2021-11-21] MEDS: AMLODIPINE 10MG TABLET PO SCH (09:00)
[2021-11-21] MEDS ORDERED: ACETAMINOPHEN 325MG TABLET PO PRN (09:00)
[2021-11-21] MEDS: SEVELAMER CARBONATE 800 MG TABLET PO SCH ×3 (09:00→16:51)
[2021-11-21] MEDS: FOLIC ACID/VITAMIN B COMP W-C TABLET PO SCH (09:01)
[2021-11-21] MEDS: METOPROLOL TARTRATE 50MG TABLET PO SCH ×2 (09:01→20:27)
[2021-11-21 10:11] LABS: BASOPHILS % 1.4 % (0.0-2.0); HEMATOCRIT. 24.2 % (42.0-52.0); HEMOGLOBIN. 8.7 g/dL (14.0-18.0); LYMPHOCYTES % 8.3 % (20.0-50.0); MEAN CORPUSCULAR HEMOGLOBIN 33.2 pg (28.0-32.0); MEAN PLATELET VOLUME 8.1 fl (7.4-10.4); MONOCYTES % 5.1 % (2.0-8.0); NEUTROPHILS % 84.2 % (40.0-76.0); PLATELET 147 x1000/uL (130-400); RED CELL DISTRIBUTION WIDTH 17.2 % (11.6-14.6)
[2021-11-21 12:00] VITALS: BP 114/72
[2021-11-21 16:00] VITALS: BP 128/88
[2021-11-21] MEDS ORDERED: ALBUTEROL 6.7GM HFA INHALER ORI SCH (18:30)
[2021-11-21] MEDS ORDERED: CEFTRIAXONE 1 G PREMIX 50 ML IV SCH (18:30)
[2021-11-21 20:00] VITALS: BP 125/85
[2021-11-21] MEDS: ALBUTEROL (0.083%) 2.5MG/3ML NEB HHN SCH (20:00)
[2021-11-21] MEDS: BENZONATATE 100MG CAPSULE PO SCH (20:26)
[2021-11-21] MEDS: AZITHROMYCIN 500 MG in DEXT 5% WATER 250 ML IV SCH (20:38)
[2021-11-21] MEDS: CEFTRIAXONE 1,000 MG in DEXTROSE 5% WATER 50 ML IV SCH (20:39)
[2021-11-21] MEDS: THROAT LOZENGES-BENZOCAINE/MENTH/CETYLPYRD CL LOZENGES MM PRN (23:10)
[2021-11-22] VITALS (22 sets, daily range): BP systolic 109–155; BP diastolic 78–108
[2021-11-22 00:10] LABS: BG BASE EXCESS -7.7 mmol/L (-2.0-2.0); BG CARBOXYHEMOGLOBIN 0.3 % (0.5-1.5); BG DEOXYHEMOGLOBIN 14.5 % (0.0-5.0); BG FRACTION INSPIRED OXYGEN 100; BG HCO3 ACT 17.3 mmol/L (22.0-26.0); BG METHEMOGLOBIN 0.2 % (0.0-1.5); BG OXYGEN SATURATION 85.4 % (92.0-98.5); BG PCO2 33.4 mmHg (35.0-45.0); BG PH 7.333 (7.350-7.450); BG PO2 55.5 mmHg (75.0-100.0); BG SAMPLE SITE RIGHT RADIAL; BG TOTAL HEMOGLOBIN 9.2 g/dL (12.0-18.0); BG VENT MODE MASK - NRB
[2021-11-22] MEDS: ALBUTEROL 6.7GM HFA INHALER ORI SCH ×2 (00:15→02:33)
[2021-11-22] MEDS: ALBUTEROL (0.083%) 2.5MG/3ML NEB HHN SCH ×4 (02:53→20:48)
[2021-11-22] MEDS: BENZONATATE 100MG CAPSULE PO SCH ×3 (05:51→20:17)
[2021-11-22] MEDS: SEVELAMER CARBONATE 800 MG TABLET PO SCH ×4 (05:52→17:27)
[2021-11-22] MEDS: PANTOPRAZOLE 40MG DR TABLET PO SCH (05:52)
[2021-11-22] MEDS: ONDANSETRON HCL 4MG/2ML INJ IV PRN (07:29)
[2021-11-22] MEDS: GUAIFENESIN-DM 200MG-20MG/10ML UDC PO PRN (07:39)
[2021-11-22] MEDS: HYDROCODONE/ACETAMINOPHEN 10/325MG TABLET PO PRN (07:44)
[2021-11-22] MEDS: FOLIC ACID/VITAMIN B COMP W-C TABLET PO SCH (08:00)
[2021-11-22] MEDS: AZITHROMYCIN 500 MG in DEXT 5% WATER 250 ML IV SCH (08:00)
[2021-11-22] MEDS: AMLODIPINE 10MG TABLET PO SCH (09:00)
[2021-11-22] MEDS: METOPROLOL TARTRATE 50MG TABLET PO SCH ×2 (09:00→20:18)
[2021-11-22 09:20] LABS: BASOPHILS % 0.8 % (0.0-2.0); EOSINOPHILS % 0.3 % (0.0-5.0); HEMATOCRIT. 26.5 % (42.0-52.0); HEMOGLOBIN. 9.2 g/dL (14.0-18.0); LYMPHOCYTES % 11.3 % (20.0-50.0); MEAN CORPUSCULAR HEMOGLOBIN 32.8 pg (28.0-32.0); MEAN CORPUSCULAR VOLUME 94.4 fL (80.0-94.0); MONOCYTES % 3.2 % (2.0-8.0); NEUTROPHILS % 84.4 % (40.0-76.0); PLATELET 166 x1000/uL (130-400); RED BLOOD CELL COUNT 2.81 mill/uL (4.7-6.1); RED CELL DISTRIBUTION WIDTH 17.3 % (11.6-14.6)
[2021-11-22] MEDS ORDERED: HEPARIN SODIUM 1,000 UNIT/1ML VIAL IV NR (14:45)
[2021-11-22 18:28] LABS: BG BASE EXCESS 0.3 mmol/L (-2.0-2.0); BG CARBOXYHEMOGLOBIN 0.2 % (0.5-1.5); BG DEOXYHEMOGLOBIN 3.3 % (0.0-5.0); BG FRACTION INSPIRED OXYGEN 100; BG HCO3 ACT 24.4 mmol/L (22.0-26.0); BG METHEMOGLOBIN 0.5 % (0.0-1.5); BG OXYGEN SATURATION 96.7 % (92.0-98.5); BG PCO2 37.3 mmHg (35.0-45.0); BG PH 7.434 (7.350-7.450); BG PO2 98.8 mmHg (75.0-100.0); BG SAMPLE SITE RIGHT RADIAL; BG TOTAL HEMOGLOBIN 9.3 g/dL (12.0-18.0); BG VENT MODE HIGH FLOW
[2021-11-22] MEDS: CEFTRIAXONE 1,000 MG in DEXTROSE 5% WATER 50 ML IV SCH (20:38)
[2021-11-23] VITALS (12 sets, daily range): BP systolic 119–145; BP diastolic 83–95
[2021-11-23] MEDS: ALBUTEROL (0.083%) 2.5MG/3ML NEB HHN SCH ×4 (01:09→20:31)
[2021-11-23] MEDS: BENZONATATE 100MG CAPSULE PO SCH ×3 (03:35→20:46)
[2021-11-23] MEDS: FOLIC ACID/VITAMIN B COMP W-C TABLET PO SCH (08:31)
[2021-11-23] MEDS: METOPROLOL TARTRATE 50MG TABLET PO SCH ×2 (08:31→20:47)
[2021-11-23] MEDS: AMLODIPINE 10MG TABLET PO SCH (08:31)
[2021-11-23] MEDS: SEVELAMER CARBONATE 800 MG TABLET PO SCH ×3 (08:31→17:35)
[2021-11-23] MEDS: AZITHROMYCIN 500 MG in DEXT 5% WATER 250 ML IV SCH (08:32)
[2021-11-23] MEDS: PANTOPRAZOLE 40MG DR TABLET PO SCH (08:32)
[2021-11-23 10:04] LABS: HEMATOCRIT. 26.6 % (42.0-52.0); HEMOGLOBIN. 9.2 g/dL (14.0-18.0); MEAN CORPUSCULAR HEMOGLOBIN 32.5 pg (28.0-32.0); MEAN CORPUSCULAR VOLUME 93.6 fL (80.0-94.0); MEAN PLATELET VOLUME 8.2 fl (7.4-10.4); PLATELET 161 x1000/uL (130-400); RED BLOOD CELL COUNT 2.85 mill/uL (4.7-6.1); RED CELL DISTRIBUTION WIDTH 16.8 % (11.6-14.6)
[2021-11-23 15:07] LABS: PLATELET ESTIMATE NORMAL
[2021-11-23] MEDS ORDERED: IPRATROPIUM/ALBUTEROL 0.5-3(2.5)MG/3ML NEB HHN PRN (16:30)
[2021-11-23] MEDS: CEFTRIAXONE 1,000 MG in DEXTROSE 5% WATER 50 ML IV SCH (20:46)
[2021-11-24] VITALS (11 sets, daily range): BP systolic 116–137; BP diastolic 80–97
[2021-11-24] MEDS: ALBUTEROL (0.083%) 2.5MG/3ML NEB HHN SCH ×4 (01:21→20:51)
[2021-11-24] MEDS: BENZONATATE 100MG CAPSULE PO SCH ×3 (04:01→20:45)
[2021-11-24 07:27] LABS: BASOPHILS % 1.3 % (0.0-2.0); EOSINOPHILS % 3.6 % (0.0-5.0); HEMATOCRIT. 24.7 % (42.0-52.0); HEMOGLOBIN. 8.4 g/dL (14.0-18.0); LYMPHOCYTES % 14.2 % (20.0-50.0); MEAN CORPUSCULAR HEMOGLOBIN 31.8 pg (28.0-32.0); MEAN CORPUSCULAR VOLUME 93.3 fL (80.0-94.0); MEAN PLATELET VOLUME 8.4 fl (7.4-10.4); MONOCYTES % 5.5 % (2.0-8.0); NEUTROPHILS % 75.4 % (40.0-76.0); PLATELET 152 x1000/uL (130-400); RED BLOOD CELL COUNT 2.65 mill/uL (4.7-6.1); RED CELL DISTRIBUTION WIDTH 16.5 % (11.6-14.6)
[2021-11-24] MEDS: PANTOPRAZOLE 40MG DR TABLET PO SCH (08:34)
[2021-11-24] MEDS: AZITHROMYCIN 500 MG in DEXT 5% WATER 250 ML IV SCH (08:34)
[2021-11-24] MEDS: SEVELAMER CARBONATE 800 MG TABLET PO SCH ×3 (08:35→18:06)
[2021-11-24] MEDS: FOLIC ACID/VITAMIN B COMP W-C TABLET PO SCH (08:35)
[2021-11-24] MEDS: AMLODIPINE 10MG TABLET PO SCH (08:35)
[2021-11-24] MEDS: METOPROLOL TARTRATE 50MG TABLET PO SCH ×2 (08:35→20:46)
[2021-11-24] MEDS: CEFTRIAXONE 1,000 MG in DEXTROSE 5% WATER 50 ML IV SCH (20:45)
[2021-11-24] MEDS ORDERED: EPOETIN ALFA 10000UNITS/ML VIAL SUBCUT SCH (21:00)
[2021-11-25] VITALS (12 sets, daily range): BP systolic 104–143; BP diastolic 58–99
[2021-11-25] MEDS: ALBUTEROL (0.083%) 2.5MG/3ML NEB HHN SCH ×4 (01:02→20:34)
[2021-11-25] MEDS: BENZONATATE 100MG CAPSULE PO SCH ×3 (04:36→20:24)
[2021-11-25 05:38] LABS: BASOPHILS % 1.1 % (0.0-2.0); EOSINOPHILS % 4.8 % (0.0-5.0); HEMATOCRIT. 25.6 % (42.0-52.0); HEMOGLOBIN. 8.9 g/dL (14.0-18.0); LYMPHOCYTES % 28.2 % (20.0-50.0); MEAN CORPUSCULAR HEMOGLOBIN 31.7 pg (28.0-32.0); MEAN CORPUSCULAR VOLUME 90.7 fL (80.0-94.0); MEAN PLATELET VOLUME 7.9 fl (7.4-10.4); MONOCYTES % 6.5 % (2.0-8.0); NEUTROPHILS % 59.4 % (40.0-76.0); PLATELET 165 x1000/uL (130-400); RED BLOOD CELL COUNT 2.82 mill/uL (4.7-6.1); RED CELL DISTRIBUTION WIDTH 15.9 % (11.6-14.6)
[2021-11-25] MEDS: AMLODIPINE 10MG TABLET PO SCH (09:00)
[2021-11-25] MEDS: METOPROLOL TARTRATE 50MG TABLET PO SCH ×2 (09:00→20:24)
[2021-11-25] MEDS: PANTOPRAZOLE 40MG DR TABLET PO SCH (09:02)
[2021-11-25] MEDS: FOLIC ACID/VITAMIN B COMP W-C TABLET PO SCH (09:02)
[2021-11-25] MEDS: AZITHROMYCIN 500 MG in DEXT 5% WATER 250 ML IV SCH (09:03)
[2021-11-25] MEDS: SEVELAMER CARBONATE 800 MG TABLET PO SCH ×3 (09:03→17:51)
[2021-11-25 09:10] LABS: GLOMERULAR BASEMENT MEMB AB 3 units (0-20)
[2021-11-25 13:07] LABS: ANTI-MYELOPEROXIDASE AB < 9.0 U/mL (0.0-9.0); ANTI-PROTEINASE 3 ABS < 3.5 U/mL (0.0-3.5); ATYPICAL P-ANCA <1:20 titer (Neg:<1:20); CYTOPLASMIC C-ANCA <1:20 titer (Neg:<1:20); PERINUCLEAR P-ANCA <1:20 titer (Neg:<1:20)
[2021-11-25] MEDS: CEFTRIAXONE 1,000 MG in DEXTROSE 5% WATER 50 ML IV SCH (20:23)
[2021-11-26] VITALS (10 sets, daily range): BP systolic 120–138; BP diastolic 76–95
[2021-11-26] MEDS: ALBUTEROL (0.083%) 2.5MG/3ML NEB HHN SCH ×3 (01:01→11:31)
[2021-11-26] MEDS: BENZONATATE 100MG CAPSULE PO SCH ×2 (04:07→11:46)
[2021-11-26] MEDS: PANTOPRAZOLE 40MG DR TABLET PO SCH (07:36)
[2021-11-26] MEDS: SEVELAMER CARBONATE 800 MG TABLET PO SCH ×2 (07:36→13:06)
[2021-11-26] MEDS: FOLIC ACID/VITAMIN B COMP W-C TABLET PO SCH (09:07)
[2021-11-26] MEDS: AMLODIPINE 10MG TABLET PO SCH (09:07)
[2021-11-26] MEDS: METOPROLOL TARTRATE 50MG TABLET PO SCH (09:07)
[2021-11-26] MEDS: THROAT LOZENGES-BENZOCAINE/MENTH/CETYLPYRD CL LOZENGES MM PRN (10:06)
[2021-11-26] MEDS ORDERED: EPOETIN ALFA-EPBX 10,000 UNIT/ML VIAL SUBCUT SCH (21:00)
[2021-11-27] MEDS ORDERED: FAMOTIDINE 20MG TABLET PO SCH (09:00)
== END 2021-11-26 18:23 | disposition home or self-care (01) | DRG 720 ==
LOC: ER 03:32 → 8WST 06:43 → EDBEDREQSVC 06:49 → EDBEDREQ 06:49 → EDBEDREQTM 06:49 → 7EST 11-21 10:39 → 5EST 11-22 12:35
PROVIDERS: ADMIT Internal Medicine; ATTEND Internal Medicine
PROC: 5A1D70Z Performance of Urinary Filtration, Intermittent, Less than 6 Hours Per Day (ICD-10-PCS; 2021-11-20)
PROC: 5A1D70Z Performance of Urinary Filtration, Intermittent, Less than 6 Hours Per Day (ICD-10-PCS; 2021-11-21)
PROC: 5A1D70Z Performance of Urinary Filtration, Intermittent, Less than 6 Hours Per Day (ICD-10-PCS; 2021-11-22)
PROC: 5A0935A Assistance with Respiratory Ventilation, Less than 24 Consecutive Hours, High Flow/Velocity Cannula (ICD-10-PCS; 2021-11-22)
PROC: 5A1D70Z Performance of Urinary Filtration, Intermittent, Less than 6 Hours Per Day (ICD-10-PCS; 2021-11-23)
PROC: 5A0945A Assistance with Respiratory Ventilation, 24-96 Consecutive Hours, High Flow/Velocity Cannula (ICD-10-PCS; 2021-11-23)
PROC: 5A1D70Z Performance of Urinary Filtration, Intermittent, Less than 6 Hours Per Day (ICD-10-PCS; principal; 2021-11-25)
DX: A41.9 Sepsis, unspecified organism (principal); J96.20 Acute and chronic respiratory failure, unspecified whether with hypoxia or hypercapnia; E43 Unspecified severe protein-calorie malnutrition; I13.2 Hypertensive heart and chronic kidney disease with heart failure and with stage 5 chronic kidney disease, or end stage renal disease; K29.71 Gastritis, unspecified, with bleeding; M31.8 Other specified necrotizing vasculopathies; J84.9 Interstitial pulmonary disease, unspecified; N18.6 End stage renal disease; U09.9 Post COVID-19 condition, unspecified; R04.2 Hemoptysis; D64.9 Anemia, unspecified; N39.0 Urinary tract infection, site not specified; Z20.822 Contact with and (suspected) exposure to COVID-19; Z99.2 Dependence on renal dialysis; Z87.01 Personal history of pneumonia (recurrent); I50.9 Heart failure, unspecified; Z68.1 Body mass index [BMI] 19.9 or less, adult
CPT/HCPCS: 36415; 36600; 71045; 71250; 80048; 80053; 82375; 82728; 82805; 83520; 83880; 84075; 84145; 84484; 85025; 85379; 85651; 86038; 86256; 86705; 86709; 86803; 87340; 87426; 87804; 93005; 94640; 99291; A6261; J0360; J0456; J0696; J0885; J1644; J2270; J2405; J2543; J7040; J7060; U0003; U0005

== ENCOUNTER 2022-09-20 09:57 | Inpatient (IN) | payer MEDICAID ==
[~2022-09-20] VITALS: Ht 167.6 cm; Wt 56.2 kg
[~2022-09-20 09:57] MED LIST: COR6 PO; FERR-71 MT; PANT40TA51 PO; SUCR1TAB PO
[2022-09-20] MEDS ORDERED: PIPERACILLIN/TAZ 3.375G PREMIX 50 ML IV ONE (16:15)
[2022-09-20 17:13] LABS: BASOPHILS % 0.8 % (0.0-2.0); EOSINOPHILS % 2.9 % (0.0-5.0); HEMATOCRIT. 34.8 % (42.0-52.0); HEMOGLOBIN. 11.8 g/dL (14.0-18.0); LYMPHOCYTES % 23.3 % (20.0-50.0); MEAN CORPUSCULAR HEMOGLOBIN 34.8 pg (28.0-32.0); MEAN CORPUSCULAR VOLUME 102.5 fL (80.0-94.0); MEAN PLATELET VOLUME 9.4 fl (7.4-10.4); MONOCYTES % 7.9 % (2.0-8.0); NEUTROPHILS % 65.1 % (40.0-76.0); PLATELET 151 x1000/uL (130-400); RED CELL DISTRIBUTION WIDTH 14.5 % (11.6-14.6)
[2022-09-20 17:20] LABS: CHLORIDE 101 mEq/L (98-107)
[2022-09-20 20:00] VITALS: BP 166/100
[2022-09-21] MEDS ORDERED: VANCOMYCIN 500MG PREMIX 100 ML IV NR (02:00)
[2022-09-21 07:02] LABS: EOSINOPHILS % 4.1 % (0.0-5.0); HEMATOCRIT. 34.2 % (42.0-52.0); HEMOGLOBIN. 11.9 g/dL (14.0-18.0); LYMPHOCYTES % 31.2 % (20.0-50.0); MEAN CORPUSCULAR HEMOGLOBIN 35.2 pg (28.0-32.0); MEAN CORPUSCULAR VOLUME 100.7 fL (80.0-94.0); MEAN PLATELET VOLUME 9.6 fl (7.4-10.4); MONOCYTES % 10.3 % (2.0-8.0); NEUTROPHILS % 53.4 % (40.0-76.0); PLATELET 136 x1000/uL (130-400); RED BLOOD CELL COUNT 3.39 mill/uL (4.7-6.1); RED CELL DISTRIBUTION WIDTH 14.5 % (11.6-14.6)
[2022-09-21 08:00] VITALS: BP 156/107
[2022-09-21] MEDS: FOLIC ACID/VITAMIN B COMP W-C TABLET PO SCH (08:41)
[2022-09-21] MEDS: CALCIUM ACETATE 667MG CAPSULE PO SCH ×3 (08:42→17:20)
[2022-09-21] MEDS: SUCRALFATE 1G TABLET PO SCH ×2 (08:42→17:20)
[2022-09-21] MEDS: CARVEDILOL 6.25 MG TABLET PO SCH ×2 (08:43→20:35)
[2022-09-21] MEDS: HYDROCODONE/ACETAMINOPHEN 5/325MG TABLET PO PRN ×2 (08:44→20:35)
[2022-09-21] MEDS ORDERED: PIPERACILLIN/TAZOBACTAM 3.375 G in DEXTROSE 5% WATER 50 ML IV SCH (09:00)
[2022-09-21] MEDS ORDERED: VANCOMYCIN 750MG PREMIX 150 ML IV NR (10:00)
[2022-09-21] MEDS: CEFTRIAXONE 1,000 MG in DEXTROSE 5% WATER 50 ML IV SCH (10:33)
[2022-09-21 12:00] VITALS: BP 144/111
[2022-09-21] MEDS ORDERED: IOHEXOL-300 100 ML BOTTLE ONE (13:11)
[2022-09-21 16:00] VITALS: BP 155/108
[2022-09-21] MEDS ORDERED: NALOXONE HCL 0.4MG/ML VIAL IV PRN (17:30)
[2022-09-21 20:00] VITALS: BP 152/99
[2022-09-22] VITALS (17 sets, daily range): BP systolic 116–174; BP diastolic 66–110
[2022-09-22 06:35] LABS: EOSINOPHILS % 4.7 % (0.0-5.0); HEMATOCRIT. 35.1 % (42.0-52.0); HEMOGLOBIN. 12.2 g/dL (14.0-18.0); LYMPHOCYTES % 40.1 % (20.0-50.0); MEAN CORPUSCULAR HEMOGLOBIN 34.7 pg (28.0-32.0); MEAN CORPUSCULAR VOLUME 100.3 fL (80.0-94.0); MEAN PLATELET VOLUME 9.2 fl (7.4-10.4); MONOCYTES % 9.4 % (2.0-8.0); NEUTROPHILS % 44.8 % (40.0-76.0); PLATELET 134 x1000/uL (130-400); RED CELL DISTRIBUTION WIDTH 14.6 % (11.6-14.6)
[2022-09-22] MEDS: SODIUM BICARBONATE 8.4% 1 MEQ/ML 50ML SYR IV NR ×2 (08:28→12:51)
[2022-09-22] MEDS ORDERED: INSULIN REGULAR (HUMULIN R) 300UNITS/3ML VIAL IV NR (08:28)
[2022-09-22] MEDS ORDERED: DEXTROSE 50% WATER 50ML SYRINGE IV NR (08:28)
[2022-09-22] MEDS: CALCIUM ACETATE 667MG CAPSULE PO SCH ×3 (08:41→17:06)
[2022-09-22] MEDS: CARVEDILOL 6.25 MG TABLET PO SCH ×2 (08:41→21:31)
[2022-09-22] MEDS: FOLIC ACID/VITAMIN B COMP W-C TABLET PO SCH (08:41)
[2022-09-22] MEDS: SUCRALFATE 1G TABLET PO SCH ×2 (08:42→12:51)
[2022-09-22] MEDS: CEFTRIAXONE 1,000 MG in DEXTROSE 5% WATER 50 ML IV SCH (12:49)
[2022-09-22] MEDS: CLONIDINE 0.1MG TABLET PO SCH ×2 (15:12→21:31)
[2022-09-22 16:16] LABS: HEMATOCRIT 37.6 % (42.0-52.0); HEMOGLOBIN 12.6 g/dL (14.0-18.0)
[2022-09-22] MEDS ORDERED: DESMOPRESSIN ACETATE 4MCG/ML AMP IV ONE (17:45)
[2022-09-22] MEDS ORDERED: SODIUM CHLORIDE 0.9% IV SCH (18:30)
[2022-09-22] MEDS ORDERED: DESMOPRESSIN ACETATE IV SCH (18:30)
[2022-09-22] MEDS ORDERED: SUCCINYLCHOLINE CHLORIDE 200MG/10ML IV ONE ×2 (21:30→21:32)
[2022-09-22] MEDS ORDERED: PROPOFOL 200MG/20ML VIAL IV ONE (21:30)
[2022-09-22] MEDS ORDERED: FENTANYL CITRATE/PF 50MCG/ML 2ML VIAL ONE (21:30)
[2022-09-22] MEDS ORDERED: DEXAMETHASONE 4MG/ML 1ML VIAL ONE (21:33)
[2022-09-22] MEDS ORDERED: ONDANSETRON HCL 4MG/2ML INJ ONE (21:33)
[2022-09-22] MEDS ORDERED: HEPARIN SODIUM 1,000 UNIT/1ML VIAL IV ONE (21:51)
[2022-09-22] MEDS: HYDROCODONE/ACETAMINOPHEN 5/325MG TABLET PO PRN (23:26)
[2022-09-23] VITALS (58 sets, daily range): BP systolic 127–175; BP diastolic 51–93
[2022-09-23 01:26] LABS: HEMATOCRIT. 35.5 % (42.0-52.0); HEMOGLOBIN. 11.9 g/dL (14.0-18.0); MEAN CORPUSCULAR HEMOGLOBIN 34.3 pg (28.0-32.0); MEAN CORPUSCULAR VOLUME 102.1 fL (80.0-94.0); MEAN PLATELET VOLUME 9.7 fl (7.4-10.4); PLATELET 154 x1000/uL (130-400); RED BLOOD CELL COUNT 3.47 mill/uL (4.7-6.1); RED CELL DISTRIBUTION WIDTH 14.5 % (11.6-14.6)
[2022-09-23] MEDS ORDERED: DEXTROSE 50% WATER 50ML SYRINGE IV NR (02:12)
[2022-09-23] MEDS ORDERED: INSULIN REGULAR (HUMULIN R) 300UNITS/3ML VIAL IV NR (02:12)
[2022-09-23] MEDS ORDERED: SODIUM BICARBONATE 8.4% 1 MEQ/ML 50ML SYR IV NR (02:15)
[2022-09-23 02:38] LABS: PLATELET ESTIMATE NORMAL
[2022-09-23 05:49] LABS: BASOPHILS % 0.1 % (0.0-2.0); EOSINOPHILS % 0.2 % (0.0-5.0); HEMATOCRIT. 30.2 % (42.0-52.0); HEMOGLOBIN. 10.5 g/dL (14.0-18.0); LYMPHOCYTES % 9.2 % (20.0-50.0); MEAN CORPUSCULAR HEMOGLOBIN 34.9 pg (28.0-32.0); MEAN CORPUSCULAR VOLUME 100.5 fL (80.0-94.0); MEAN PLATELET VOLUME 9.2 fl (7.4-10.4); MONOCYTES % 1.7 % (2.0-8.0); NEUTROPHILS % 88.8 % (40.0-76.0); PLATELET 129 x1000/uL (130-400); RED BLOOD CELL COUNT 3.01 mill/uL (4.7-6.1); RED CELL DISTRIBUTION WIDTH 14.7 % (11.6-14.6)
[2022-09-23] MEDS: HYDROCODONE/ACETAMINOPHEN 5/325MG TABLET PO PRN ×2 (06:15→16:33)
[2022-09-23] MEDS: CLONIDINE 0.1MG TABLET PO SCH ×3 (06:16→21:02)
[2022-09-23] MEDS: FOLIC ACID/VITAMIN B COMP W-C TABLET PO SCH (08:40)
[2022-09-23] MEDS: SUCRALFATE 1G TABLET PO SCH ×2 (08:40→18:05)
[2022-09-23] MEDS: CARVEDILOL 6.25 MG TABLET PO SCH ×2 (08:40→21:02)
[2022-09-23] MEDS: CALCIUM ACETATE 667MG CAPSULE PO SCH ×3 (08:41→18:04)
[2022-09-23] MEDS: CEFTRIAXONE 1,000 MG in DEXTROSE 5% WATER 50 ML IV SCH (10:56)
[2022-09-23 12:14] LABS: CHLORIDE 96 mEq/L (98-107)
[2022-09-23] MEDS ORDERED: HYDRALAZINE 20MG/ML VIAL IV PRN (17:45)
[2022-09-23] MEDS: AMLODIPINE 10MG TABLET PO SCH (18:04)
[2022-09-23 18:09] LABS: HEPATITIS B SURFACE ANTIGEN NEGATIVE
[2022-09-24] VITALS (45 sets, daily range): BP systolic 124–188; BP diastolic 69–101
[2022-09-24 05:41] LABS: BASOPHILS % 0.5 % (0.0-2.0); EOSINOPHILS % 0.4 % (0.0-5.0); HEMATOCRIT. 28.5 % (42.0-52.0); HEMOGLOBIN. 9.9 g/dL (14.0-18.0); LYMPHOCYTES % 25.5 % (20.0-50.0); MEAN CORPUSCULAR HEMOGLOBIN 35.1 pg (28.0-32.0); MEAN CORPUSCULAR VOLUME 100.9 fL (80.0-94.0); MEAN PLATELET VOLUME 9.4 fl (7.4-10.4); MONOCYTES % 6.4 % (2.0-8.0); NEUTROPHILS % 67.2 % (40.0-76.0); PLATELET 127 x1000/uL (130-400); RED BLOOD CELL COUNT 2.82 mill/uL (4.7-6.1); RED CELL DISTRIBUTION WIDTH 14.4 % (11.6-14.6)
[2022-09-24] MEDS: CLONIDINE 0.1MG TABLET PO SCH ×2 (05:59→14:17)
[2022-09-24 06:20] LABS: T4 FREE 1.12 ng/dL (0.76-1.46)
[2022-09-24] MEDS: FOLIC ACID/VITAMIN B COMP W-C TABLET PO SCH (09:00)
[2022-09-24] MEDS: SUCRALFATE 1G TABLET PO SCH (09:00)
[2022-09-24] MEDS: AMLODIPINE 10MG TABLET PO SCH (09:00)
[2022-09-24] MEDS: CARVEDILOL 6.25 MG TABLET PO SCH (09:00)
[2022-09-24] MEDS: CALCIUM ACETATE 667MG CAPSULE PO SCH ×2 (09:00→14:17)
[2022-09-24 09:28] LABS: INR 1.1
[2022-09-24] MEDS ORDERED: LIDOCAINE HCL 1% 10 MG/ML 10ML VIAL ONE (09:29)
[2022-09-24] MEDS ORDERED: HEPARIN 1000 UNITS/ML 10ML ONE (09:29)
[2022-09-24] MEDS ORDERED: FENTANYL CITRATE/PF 50MCG/ML 2ML VIAL ONE (09:32)
[2022-09-24] MEDS ORDERED: MIDAZOLAM HCL 2 MG/2 ML VIAL ONE (09:32)
[2022-09-24] MEDS ORDERED: FENTANYL CITRATE/PF 50MCG/ML 2ML VIAL IV NR (10:30)
[2022-09-24] MEDS ORDERED: MIDAZOLAM HCL 5 MG/5 ML VIAL IV NR (10:30)
[2022-09-24] MEDS: CEFTRIAXONE 1,000 MG in DEXTROSE 5% WATER 50 ML IV SCH (11:16)
[2022-09-24] MEDS: HYDROCODONE/ACETAMINOPHEN 5/325MG TABLET PO PRN (14:21)
== END 2022-09-24 18:10 | disposition home or self-care (01) | DRG 180 ==
LOC: ER 09:57 → 6EST 17:36 → EDBEDREQ 17:37 → EDBEDREQTM 17:37 → ER 22:27 → 7WST 09-22 17:09 → CVICU 09-22 22:49
PROVIDERS: ADMIT Internal Medicine; ATTEND Internal Medicine
PROC: 5A1D70Z Performance of Urinary Filtration, Intermittent, Less than 6 Hours Per Day (ICD-10-PCS; 2022-09-22)
PROC: 03Q80ZZ Repair Left Brachial Artery, Open Approach (ICD-10-PCS; 2022-09-22)
PROC: 5A1D70Z Performance of Urinary Filtration, Intermittent, Less than 6 Hours Per Day (ICD-10-PCS; 2022-09-23)
PROC: 0JH63XZ Insertion of Tunneled Vascular Access Device into Chest Subcutaneous Tissue and Fascia, Percutaneous Approach (ICD-10-PCS; principal; 2022-09-24)
PROC: 02HV33Z Insertion of Infusion Device into Superior Vena Cava, Percutaneous Approach (ICD-10-PCS; 2022-09-24)
PROC: B5181ZA Fluoroscopy of Superior Vena Cava using Low Osmolar Contrast, Guidance (ICD-10-PCS; 2022-09-24)
PROC: B548ZZA Ultrasonography of Superior Vena Cava, Guidance (ICD-10-PCS; 2022-09-24)
DX: T82.7XXA Infection and inflammatory reaction due to other cardiac and vascular devices, implants and grafts, initial encounter (principal); I13.2 Hypertensive heart and chronic kidney disease with heart failure and with stage 5 chronic kidney disease, or end stage renal disease; I31.39 Other pericardial effusion (noninflammatory); I27.29 Other secondary pulmonary hypertension; I42.9 Cardiomyopathy, unspecified; D63.1 Anemia in chronic kidney disease; N18.6 End stage renal disease; T82.510A Breakdown (mechanical) of surgically created arteriovenous fistula, initial encounter; I72.1 Aneurysm of artery of upper extremity; E87.5 Hyperkalemia; I50.42 Chronic combined systolic (congestive) and diastolic (congestive) heart failure; J45.909 Unspecified asthma, uncomplicated; Z20.822 Contact with and (suspected) exposure to COVID-19; L03.90 Cellulitis, unspecified; I08.1 Rheumatic disorders of both mitral and tricuspid valves; Y71.2 Prosthetic and other implants, materials and accessory cardiovascular devices associated with adverse incidents; Y83.2 Surgical operation with anastomosis, bypass or graft as the cause of abnormal reaction of the patient, or of later complication, without mention of misadventure at the time of the procedure; Z99.2 Dependence on renal dialysis; Z86.16 Personal history of COVID-19; Z79.899 Other long term (current) drug therapy; Y92.89 Other specified places as the place of occurrence of the external cause
CPT/HCPCS: 36415; 36558; 36589; 71045; 73201; 76937; 77001; 80048; 80053; 80061; 80202; 82962; 83735; 84132; 84145; 84439; 84443; 84481; 84484; 85014; 85018; 85025; 86705; 86709; 86803; 87340; 87426; 90935; 93005; 93306; 93971; 99152; 99153; 99285; C1750; C1769; C1887; J0330; J0696; J1100; J1644; J2250; J2405; J2543; J2597; J2704; J3010; J3370; J3490; J7030; J7060; L8514; Q9967; G0500

== ENCOUNTER 2023-01-30 04:18 | Emergency (ER) | payer MEDICAID ==
[~2023-01-30] VITALS: Ht 167.6 cm; Wt 57.0 kg
[2023-01-30] MEDS ORDERED: ONDANSETRON HCL 4MG/2ML INJ IV STA (04:35)
[2023-01-30] MEDS ORDERED: MORPHINE SULFATE 4 MG/ML CPJ (NOT FOR IM USE) IV STA (04:35)
[2023-01-30] MEDS ORDERED: TRANEXAMIC ACID 1,000 MG/10 ML IV ONE (04:45)
[2023-01-30 05:12] LABS: BASOPHILS % 1.3 % (0.0-2.0); EOSINOPHILS % 6.6 % (0.0-5.0); HEMATOCRIT. 34.3 % (42.0-52.0); HEMOGLOBIN. 11.5 g/dL (14.0-18.0); MEAN CORPUSCULAR HEMOGLOBIN 32.4 pg (28.0-32.0); MEAN CORPUSCULAR VOLUME 96.6 fL (80.0-94.0); MEAN PLATELET VOLUME 8.3 fl (7.4-10.4); MONOCYTES % 14.1 % (2.0-8.0); PLATELET 172 x1000/uL (130-400); RED BLOOD CELL COUNT 3.56 mill/uL (4.7-6.1); RED CELL DISTRIBUTION WIDTH 14.5 % (11.6-14.6)
[2023-01-30 05:21] LABS: CHLORIDE 97 mEq/L (98-107)
[2023-01-30 05:39] LABS: INR 1.1; PROTHROMBIN TIME 11.5 sec (9.6-11.0)
[2023-01-30 07:47] VITALS: BP 122/64
== END 2023-01-30 08:09 | disposition home or self-care (01) ==
LOC: ER 04:18
DX: T82.838A Hemorrhage due to vascular prosthetic devices, implants and grafts, initial encounter (principal); N18.6 End stage renal disease; Z99.2 Dependence on renal dialysis; Z88.1 Allergy status to other antibiotic agents; Y84.6 Urinary catheterization as the cause of abnormal reaction of the patient, or of later complication, without mention of misadventure at the time of the procedure
CPT/HCPCS: 36415; 74176; 80053; 85025; 85610; 86850; 86900; 86901; 96374; 96375; 99291; J2270; J2405; Z7610

== ENCOUNTER 2023-02-02 20:59 | Emergency (ER) | payer MEDICAID ==
[~2023-02-02] VITALS: Ht 167.6 cm; Wt 57.7 kg
[2023-02-02 21:54] VITALS: BP 132/82
[2023-02-02] MEDS ORDERED: LIDOCAINE HCL/EPINEPHRINE 1%-EPI 1:100,000 50 ML VIAL INFIL ONE (23:45)
[2023-02-02] MEDS ORDERED: LIDOCAINE 1%/EPI 1:200,000 10 ML VIAL IJ NR (23:45)
== END 2023-02-03 00:52 | disposition home or self-care (01) ==
LOC: ER 20:59
DX: T82.838A Hemorrhage due to vascular prosthetic devices, implants and grafts, initial encounter (principal)
CPT/HCPCS: 99281; Z7610

== ENCOUNTER 2023-02-04 08:54 | Emergency (ER) | payer MEDICAID ==
[~2023-02-04] VITALS: Ht 162.6 cm; Wt 63.0 kg
[2023-02-04 10:32] VITALS: BP 135/82
== END 2023-02-04 10:33 | disposition home or self-care (01) ==
LOC: ER 09:41
DX: Z49.02 Encounter for fitting and adjustment of peritoneal dialysis catheter (principal); Z88.0 Allergy status to penicillin
CPT/HCPCS: 99281

== ENCOUNTER 2024-09-27 17:35 | Emergency (ER) | payer MEDICAID ==
[~2024-09-27] VITALS: Ht 172.7 cm; Wt 70.0 kg
[~2024-09-27 17:35] MED LIST changes: +CALC667C PO
[2024-09-27 17:39] VITALS: O2SAT 98
[2024-09-27 17:57] VITALS: BP 174/109; PULSE 74; RESP 18; TEMP 98.2; O2SAT 100
[2024-09-27] MEDS: TRANEXAMIC ACID 1,000MG/10ML TP ONE (19:15)
== END 2024-09-27 22:33 | disposition home or self-care (01) ==
LOC: ER 17:35
DX: K91.840 Postprocedural hemorrhage of a digestive system organ or structure following a digestive system procedure (principal); I10 Essential (primary) hypertension; Z88.0 Allergy status to penicillin; Z99.2 Dependence on renal dialysis
CPT/HCPCS: 99283; Z7610

== ENCOUNTER 2025-03-27 15:55 | Emergency (ER) | payer MEDICAID ==
[~2025-03-27] VITALS: Ht 167.6 cm; Wt 60.0 kg
[2025-03-27 16:02] VITALS: O2SAT 100
[2025-03-27] MEDS ORDERED: ACET-2708 MT (17:31)
[2025-03-27 17:35] VITALS: BP 154/103; PULSE 78; RESP 16; TEMP 36.7; O2SAT 100
== END 2025-03-27 17:39 | disposition home or self-care (01) ==
LOC: ER 15:55
DX: M25.522 Pain in left elbow (principal); M25.552 Pain in left hip; I10 Essential (primary) hypertension; Z88.0 Allergy status to penicillin; Z99.2 Dependence on renal dialysis
CPT/HCPCS: 99284; 72170; 73080; A6449; A4565